=== PATIENT | male | born 1950 ===

== ENCOUNTER 2018-12-01 09:43 | Emergency (ER) | payer MEDICARE, OTHER ==
[2018-12-01 10:00] VITALS: BP 160/100
--- NOTE | 2018-12-01 10:13 | UC ---
Respiratory Complaint HPI - HPI Summary HPI Summary: 68 y/o male presents to the urgent care c/o nasal congestion w/ green bloody nasal discharge, sinus pain, MCRAE for the past 2 weeks. Pt reports he has taken OTC medication to alleviate symptoms w/o any improvement. About 2 days ago he develops B/L neck pain s/p driving 4 hrs to come here to visit her daughter. Yesterday he felt worsen body aches and fatigue. His seems to have the flu. He also felt like a Pain is 5/10. Pt denies fever, dizziness, SOB, chest pain, abdominal pain, N/V/D. - History of Current Complaint Chief Complaint: UCGeneralIllness Stated Complaint: NECK PAIN Time Seen by Provider: 12/01/18 10:10 Hx Obtained From: Patient Onset/Duration: Gradual Onset, Lasting Weeks - 2 weeks, Still Present, Worse Since - yesterday he develope B/L neck pain and body aches Timing: Constant Severity Initially: Mild Severity Currently: Moderate Pain Intensity: 6 Pain Scale Used: 0-10 Numeric Character: Cough: Nonproductive Aggravating Factors: Recumbent Position Alleviating Factors: OTC Meds Associated Signs And Symptoms: Positive: Chills, URI, Nasal Congestion, Sinus Discomfort. Negative: Fever, Wheezing, Dizziness - Risk Factors Pulmonary Embolism Risk Factors: Negative Cardiac Risk Factors: Negative Pseudomonas Risk Factors: Negative Tuberculosis Risk Factors: Negative - Allergies/Home Medications Home Medications: Home Medications Atorvastatin* [Lipitor 40 MG*] 40 mg PO DAILY 12/01/18 [History Confirmed ] Ezetimibe TAB* [Zetia TAB*] 10 mg PO DAILY 12/01/18 [History Confirmed 12/01/18] Losartan TAB* [Cozaar TAB*] 25 mg PO DAILY 12/01/18 [History Confirmed 12/01/18] Omeprazole 20 mg PO DAILY 12/01/18 [History Confirmed 12/01/18] PMH/Surg Hx/FS Hx/Imm Hx Previously Healthy: Yes Endocrine History: Dyslipidemia Cardiovascular History: Hypertension GI/ History: Gastroesophageal Reflux - Surgical History Surgical History: Yes Surgery Procedure, Year, and Place: hernia - Family History Known Family History: Positive: Cardiac Disease - Social History Occupation: Retired Lives: With Family Alcohol Use: Occasionally Substance Use Type: None Smoking Status (MU): Former Smoker Review of Systems All Other Systems Reviewed And Are Negative: Yes Constitutional: Positive: Negative, Other - body aches Skin: Positive: Negative Eyes: Positive: Negative ENT: Positive: Nasal Discharge - green w/ blood, Sinus Congestion, Sinus Pain/ Tenderness, Other - PND Respiratory: Positive: Cough - dry Cardiovascular: Positive: Negative Gastrointestinal: Positive: Negative Genitourinary: Positive: Negative Motor: Positive: Negative Neurovascular: Positive: Negative Musculoskeletal: Positive: Myalgia, Other: - B/L neck pain Neurological: Positive: Headache - mild Psychological: Positive: Negative Is Patient Immunocompromised?: No Physical Exam - Summary Physical Exam Summary: Vitals: reviewed General: Well developed, well-nourished male patient with NAD. Head and face: Normocephalic and atraumatic, Positive tenderness over the frontal and maxillary sinuses.. Eyes: PERRLA, EOMI x 2. Normal conjunctiva. No eye discharge. ENT: Ears and TM with normal limits. Nose: edematous and erythematous nasal mucosa with with bloody green discharge and erythematous mucosa. Pharynx with erythema, no exudate. green PND Neck: no surface trauma, open wounds, soft tissue,Positive paraspinal muscle tenderness and spasm B/L trapezius muscles;trachea midline, NT over larynx. No subcutaneous emphysema or crepitus. No bony tenderness, step-off or deformity to firm palpation at posterior midline. FROM without limitation or pain; normal flexion, extension, lateral bending, rotation, and axial load. CVS: RRR, S1 and S2 present no murmurs or gallops appreciated. Abdomen: soft nontender with positive bowel sounds. Extremities: no edema noted. Neuro: WNL. Skin: warm and dry Triage Information Reviewed: Yes Vital Signs: Initial Vital Signs Temp 98.6 F 12/01/18 09:52 Pulse 86 12/01/18 09:52 Resp 17 12/01/18 09:52 BP 160/100 12/01/18 09:52 Pulse Ox 99 12/01/18 09:52 UC Diagnostic Evaluation - Laboratory O2 Sat by Pulse Oximetry: 99 Respiratory Course/Dx - Course Course Of Treatment: 68 y/o male presents to the urgent care c/o nasal congestion w/ green bloody nasal discharge, sinus pain, MCRAE for the past 2 weeks. Pt reports he has taken OTC medication to alleviate symptoms w/o any improvement. About 2 days ago he develops B/L neck pain s/p driving 4 hrs to come here to visit her daughter. Yesterday he felt worsen body aches and fatigue. His seems to have the flu. He also felt like a Pain is 5/10. Pt denies fever, dizziness, SOB, chest pain, abdominal pain, N/V/D. Hx obtained. Influenza A&B ordered: negative. Pt w/ Acute bacterial sinusitis and neck muscle spasm on examination. Pt with 2 weeks of symptoms getting worse. Pt Rx Augmentin PO, Flexeril PO and flonase nasal spray. Your BP is elevated today. please decrease salt in your diet, monitor BP and if it continues to be elevated please f/u with your PCP for further management. Discharge instructions explained to Pt. Advised to Return to the clinic or PCP if symptoms do not improve.Pt understood and agreed with plan of care. - Differential Dx/Diagnosis Differential Diagnosis/HQI/PQRI: Bronchitis, Influenza, Laryngitis, Lower Resp Infection, Sinusitis Provider Diagnosis: Acute bacterial sinusitis, Uncontrolled hypertension, Muscle spasms of neck Discharge - Sign-Out/Discharge Documenting (check all that apply): Patient Departure - D/C home All imaging exams completed and their final reports reviewed: No Studies - Discharge Plan Condition: Stable Disposition: HOME Prescriptions: Amoxicillin/Clavulanate TAB* [Augmentin TAB 875*] 875 mg PO BID #20 tab Cyclobenzaprine TAB* [Flexeril 10 MG TAB*] 10 mg PO TID PRN #21 tab PRN Reason: Spasms - Neck Fluticasone NASAL SPRAY 50MCG* [Flonase NASAL SPRAY 50MCG*] 2 spray BOTH NARES DAILY #1 btl Patient Education Materials: Sinusitis (ED), Low-Sodium Diet (ED), Muscle Spasm (ED) Referrals: [facility] [Outside] - 3 Days Additional Instructions: 1- Please increase fluid intake and rest. take full course of antibiotic to avoid resistance 2-Use Flonase as directed to help drain fluid. Also buy saline drops to clear sinuses 3-Take Flexeril PO as directed to alleviate neck muscle spasm. Please do not drive if it makes you too drowsy. Avoid strenuous exercise or heavy lifting 4- Your BP is elevated today. Please take your BP medications and decrease salt in your diet, monitor BP and if it continues to be elevated please f/u with your PCP for further management. If you develop chest pain, dizziness, visual disturbances, SOB, or severe MCRAE please go immediately to the ER for further management. 5-Return to the clinic or PCP in 3 days if symptoms do not improve for further management and treatment - Billing Disposition and Condition Condition: STABLE Disposition: Home - Attestation Statements Provider Attestation: Per institutional requirements, I have reviewed the chart, however, I was not consulted specifically or made aware of this patient by the midlevel provider. I did not personally evaluate, interact with , or disposition this patient.
[2018-12-01 11:05] LABS: Influenza A Molecular NEGATIVE (Negative); Influenza B Molecular NEGATIVE (Negative)
== END 2018-12-01 11:50 | disposition home or self-care (01) ==
LOC: UCEAST 09:43
DX: B96.89 Other specified bacterial agents as the cause of diseases classified elsewhere (principal); M62.838 Other muscle spasm; I10 Essential (primary) hypertension; E78.5 Hyperlipidemia, unspecified; K21.9 Gastro-esophageal reflux disease without esophagitis; Z87.891 Personal history of nicotine dependence; J01.90 Acute sinusitis, unspecified
CPT/HCPCS: 99202; G0463